=== PATIENT | female | born 1945 | race Caucasian/White ===

== ENCOUNTER → 2021-08-23 10:34 | Outpatient (BNVA) | payer OTHER, SELFPAY | PROVIDERS: Visit Provider Nurse Practitioner Family | DX: Z20.822 Contact with and (suspected) exposure to COVID-19 (principal) | CPT/HCPCS: 87635 ==

== ENCOUNTER 2022-11-08 19:11 | Emergency (ER) | payer MEDICARE, OTHER, SELFPAY ==
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
[2022-11-08 19:32] VITALS: BP 144/81; PULSE 124; RESP 25; TEMP 36.2; O2SAT 94; BMI 30.4
[2022-11-08 19:50] VITALS: BP 162/102; PULSE 75; RESP 16; TEMP 36.8; O2SAT 97; BMI 25.7
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
[2022-11-08] MEDS: cyclobenzaprine 10 mg Tablet 5 MG PO (21:17)
[2022-11-08 21:27] VITALS: BP 141/96; PULSE 68; RESP 16; TEMP 36.3; O2SAT 96
--- NOTE | 2022-11-09 11:09 | DCPLANNER ---
Addendum entered by Jyotsna Morillo 12/02/22 07:26: Patient had a follow up appointment at ortho - patient did attend appointment. Addendum entered by Jyotsna Morillo 11/11/22 13:44: Patient has a follow up appointment scheduled for Monday, November 16, 2022 at 3:[address] Aceves at ortho. Clinic will call patient with appointment information. Original Note: veterinary practice manager had message to schedule a follow up appointment for patient with ortho. veterinary practice manager sent patients information to the front office staff at ortho. Patients information will be printed and reviewed. Clinic will call patient with appointment information.
== END 2022-11-08 21:16 | disposition home or self-care (01) ==
PROVIDERS: Emergency Provider Nurse Practitioner Family
DX: S46.912A Strain of unspecified muscle, fascia and tendon at shoulder and upper arm level, left arm, initial encounter (principal); V43.62XA Car passenger injured in collision with other type car in traffic accident, initial encounter; I10 Essential (primary) hypertension
CPT/HCPCS: 73030; 99283

== ENCOUNTER → 2022-11-16 14:46 | Outpatient (BNVA) | payer MEDICARE, OTHER, SELFPAY | PROVIDERS: Referring Provider Nurse Practitioner Family; Visit Provider Orthopaedic Surgery | DX: M75.102 Unspecified rotator cuff tear or rupture of left shoulder, not specified as traumatic (principal) | CPT/HCPCS: 20610; 99203; J0702; J3490 ==